=== PATIENT | female | born 1995 | race Caucasian/White ===

== ENCOUNTER 2019-07-07 08:42 | Outpatient (CLI) | payer BC ==
--- NOTE | 2019-07-07 10:16 | RAD ---
CHEST 2 VIEWS: Date: 07/07/2019 HISTORY: Dyspnea. FINDINGS: Heart size is within normal limits. The lungs are clear. No confluent pneumonia, overt edema, or pleu ral effusion. IMPRESSION: No acute intrathoracic disease. POS: OFF
== END 2019-07-07 08:43 | disposition home or self-care (01) ==
LOC: RAD 08:42
PROVIDERS: ATTEND Internal Medicine Critical Care Medicine
DX: R06.00 Dyspnea, unspecified (principal)
CPT/HCPCS: 71046